=== PATIENT | male | born 1945 | race Caucasian/White ===

== ENCOUNTER → 2016-09-01 12:37 | Outpatient (CLI) | payer MEDICARE, BC ==
[~2016-09-01 12:37] MED LIST: ALDACTONE25 MG PO; AMBIEN10 MG PO; ASPIRIN325 MG PO; COREG 3.1253.125 MG PO; HYZAAR 50-12.51 TAB PO; SINGULAIR10 MG PO
[2016-09-01 14:01] LABS: BASOPHILS 0.9 % (0.0-2.0); EOSINOPHILS 3.4 % (0-7); HEMATOCRIT 43.2 % (42.0-54.0); HEMOGLOBIN 15.5 g/dL (13.5-17.5); IMMATURE GRANULOCYTES 0.3 % (0-5); LYMPHOCYTES 21.9 % (15-50); MCH 32.5 pg (26.0-34.0); MCHC 35.9 g/dL (31.0-37.0); MCV 90.6 fL (80.0-100.0); MEAN PLATELET VOLUME 9.2 fL (7.4-10.4); MONOCYTES 10.8 % (2-11); NEUTROPHILS 62.7 % (40-80); PLATELET COUNT 133 10x3/uL (130-400); RBC 4.77 10x6/uL (4.20-6.10); WBC 5.8 10x3/uL (4.8-10.8)
[2016-09-02 10:19] LABS: IMMUNOGLOBULIN E 45 IU/mL (0-100)
[2016-09-02 11:17] LABS: IMMUNOGLOBULIN A 269 mg/dL (61-437); IMMUNOGLOBULIN G 815 mg/dL (700-1600); IMMUNOGLOBULIN M 207 mg/dL (20-172)
[2016-09-15 09:17] VITALS: BMI 28.0
== END | disposition home or self-care (01) ==
LOC: D.RT 12:37
PROVIDERS: Internal Medicine Pulmonary Disease
DX: J47.9 Bronchiectasis, uncomplicated (principal)

== ENCOUNTER 2016-09-15 07:31 | Outpatient (CLI) | payer MEDICARE, BC ==
[~2016-09-15] VITALS: Ht 182.9 cm; Wt 93.6 kg
[2016-09-15 09:01] LABS: APTT 27.8 SECONDS (22.8-39.4); INR 1.03 (0.85-1.17); PROTIME 13.3 SECONDS (11.6-15.0)
[2016-09-15] MEDS ORDERED: ASPIRIN325 MG PO (09:05)
[2016-09-15] MEDS ORDERED: HYZAAR 50-12.51 TAB PO (09:06)
[2016-09-15] MEDS ORDERED: COREG 3.1253.125 MG PO (09:06)
[2016-09-15 09:07] LABS: HEMATOCRIT 38.7 % (42.0-54.0); HEMOGLOBIN 13.5 g/dL (13.5-17.5); MCH 32.1 pg (26.0-34.0); MCHC 34.9 g/dL (31.0-37.0); MCV 92.1 fL (80.0-100.0); MEAN PLATELET VOLUME 9.5 fL (7.4-10.4); PLATELET COUNT 128 10x3/uL (130-400); RDW 13.3 % (11.5-14.5); WBC 5.6 10x3/uL (4.8-10.8)
[2016-09-15] MEDS ORDERED: SINGULAIR10 MG PO (09:08)
[2016-09-15] MEDS ORDERED: ALDACTONE25 MG PO (09:08)
[2016-09-15] MEDS ORDERED: AMBIEN10 MG PO (09:08)
[2016-09-15 09:17] VITALS: BP 136/74; Ht 182.9 cm; Wt 93.6 kg
[2016-09-15 10:13] LABS: EOSINOPHILS 1 % (0-7); LYMPHOCYTES 26 % (15-50); MONOCYTES 2 % (2-11); NEUTROPHILS 71 % (40-80)
[2016-09-15 10:15] LABS: PLATELET ESTIMATE DECREASED; POLYCHROMASIA OCC; TEAR DROP CELLS 1+
--- NOTE | 2016-09-15 15:35 | NUR ---
1050-RECEIVED PT TO ROOM 2509 FROM POST PROCEDURE BRONCH. PT AWAKE AND ALERT VSS, NO DISTRESS POX 96% IN 2L VIA NC. PT REMAINS NPO PER DRS ORDERS. 1105-PT CONTINUES TO DO WELL WITHOUT ANY DISTRESS CALL LIGHT IN REACH AND AT BEDSIDE 1120-NO CHANGES WILL CONTINUE TO MONITOR, DECREASED O2 TO 1L 1135-NO CHANGES, PT WITHOUT DISTRESS REMAINS NPO 1235-PT ON ROOM AIR POX 96% DENIES ANY NEEDS OR CONCERNS REMAINS NPO AND CALL LIGHT IN REACH 1310-PT TOLERATING WATER WITH OUT ANY DIFFICULTIES AND DID NOT WANT A FULL LIQUID TRAY. TO BATHROOMA DN VOIDED IV DISCONTINUED WITH CATHETER INTACT. DISCHARGE INSTRUCTIONS GIVEN AND WENT OVER COPY HANDED TO PATIENT. PT STATES THAT HE HAS A FOLLOW UP APPOINTMENT ALREADY MADE. PT ESCORTED OUT VIA WHEELCHAIR IN STABLE CONDITION
[2016-09-16 18:09] LABS: AFB SPECIMEN PROCESSING Concentration (())
[2016-09-19 14:15] LABS: FUNGUS STAIN Final report (())
[2016-09-23 09:17] LABS: FUNGUS STAIN RESULT 1 Yeast observed (())
--- NOTE | 2016-09-30 13:49 | PRO ---
PATIENT:CARLTON OFSTER MEDICAL RECORD: [id number] : 49 LOCATION:D.OPS ADMISSION DATE: 09/15/16 PROCEDURE PERFORMED BY: VIRA MARTINEZ MD DATE OF PROCEDURE: 09/15/2016 PROCEDURE: Fiberoptic bronchoscopy. 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 He has a chronic cough, which is productive with a white to yellow color sputum production. CT scan of the chest showed some bronchiectatic changes. Fiberoptic bronchoscopy was carried down to inspect the airways as well as to obtain specimens for culture and sensitivity. MEDICATIONS: Versed 8 mg IV in divided doses, fentanyl 100 mcg IV in divided doses, atropine 0.6 mg IV. MONITORING: EKG, pulse, and blood pressure were monitored throughout the procedure. PROCEDURE IN DETAIL: After signing the consent form, getting conscious sedation, the fiberoptic bronchoscope was easily passed through the mouth. The vocal cords were normal, moving equally on phonation. The epiglottis was normal. The vallecula was normal. The main trachea was normal. The thee was sharp. The right main bronchus subsegment to the right upper lobe, right middle lobe, right lower lobe within normal range and the bronchus intermedius within normal range. No endobronchial lesion was seen. There are whitish secretions coming from the lower lobe. The left main bronchus subsegment to the left upper lobe lingula within normal range. The left lower lobe subsegment within normal limits. No endobronchial lesion was seen. There were also whitish secretions coming especially from the lower lobe. Specimen washing was obtained bilaterally and sent for routine culture and sensitivity, AFB and fungus and cytology. Overall, the patient tolerated the procedure well. The blood loss was none. 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
[2016-10-03 15:19] LABS: FUNGUS CULTURE RESULT 1 Candida albicans (())
[2016-10-17 07:10] LABS: FUNGUS MYCOLOGY CULTURE Final report (())
[2016-11-04 09:15] LABS: ACID FAST CULTURE Negative (()); ACID FAST SMEAR Negative (())
== END 2016-09-15 13:10 | disposition home or self-care (01) ==
LOC: D.OPS 07:31
PROVIDERS: Internal Medicine Pulmonary Disease
DX: R05 Cough (principal); Z95.1 Presence of aortocoronary bypass graft

== ENCOUNTER → 2017-03-15 10:56 | Outpatient (CLI) | payer MEDICARE, BC ==
[2016-09-15 09:17] VITALS: BMI 28.0
== END | disposition home or self-care (01) ==
LOC: D.US 10:56
DX: R91.1 Solitary pulmonary nodule (principal)

== ENCOUNTER → 2017-03-20 15:55 | Outpatient (CLI) | payer MEDICARE, BC ==
[2016-09-15 09:17] VITALS: BMI 28.0
== END | disposition home or self-care (01) ==
LOC: D.MAMMO 08:30
DX: N63 Unspecified lump in breast (principal)

== ENCOUNTER → 2018-04-09 07:27 | Outpatient (CLI) | payer MEDICARE, BC ==
[2016-09-15 09:17] VITALS: BMI 28.0
== END | disposition home or self-care (01) ==
LOC: D.CT 07:27
DX: J47.9 Bronchiectasis, uncomplicated (principal)

== ENCOUNTER → 2020-02-10 21:17 | Outpatient (CLI) | payer MEDICARE, BC ==
[2016-09-15 09:17] VITALS: BMI 28.0
== END | disposition home or self-care (01) ==
LOC: D.LABREF 21:17
PROVIDERS: ATTEND Internal Medicine Pulmonary Disease
DX: J47.9 Bronchiectasis, uncomplicated (principal)

== ENCOUNTER → 2020-04-27 11:18 | Outpatient (CLI) | payer MEDICARE, BC ==
[2016-09-15 09:17] VITALS: BMI 28.0
== END | disposition home or self-care (01) ==
LOC: D.LAB 11:18
PROVIDERS: ATTEND Internal Medicine Pulmonary Disease
DX: Z11.59 Encounter for screening for other viral diseases (principal)